=== PATIENT | male | born 1945 | race Caucasian/White ===

== ENCOUNTER 2016-08-14 12:23 | Inpatient (IN) | payer OTHER, MEDICARE ==
[~2016-08-14] VITALS: Ht 165.1 cm; Wt 68.0 kg
[~2016-08-14 12:23] MED LIST: ADVIL200 MG PO; ASPIRIN81 M2 PO; ATORVASTATIN CA80 MG PO; CARVEDILOL3.125 MG PO; LISINOPRIL10 MG PO; LISINOPRIL2.5 MG PO; METOPROLOL TART25 MG PO; NITROSTAT0.4 MG SL; NORVASC2.5 MG PO; VANCOCIN 250 M250 MG PO
[2016-08-14 13:36] LABS: HEMATOCRIT 39.8 % (38.0-50.0); MCH 33.3 PG (29.0-34.0); MCHC 35.7 G/DL (30.0-36.0); MCV 93.2 FL (86-99); MEAN PLAT.VOLUME 10.3 uM^3 (9.0-12.4); PLATELET COUNT 55 K/uL (156-360); RBC DIS.WIDTH-CV 15.5 % (11.8-14.6); RED BLOOD COUNT 4.27 M/uL (4.00-5.50); WHITE BLOOD COUNT 4.1 K/uL (4.1-10.2)
[2016-08-14 13:44] LABS: CHLORIDE 105 mEq/L (99-109); POTASSIUM 3.6 mEq/L (3.7-5.4); SODIUM 143 mEq/L (136-147)
[2016-08-14 13:46] LABS: GLUCOSE 92 mg/dL (70-99)
[2016-08-14 13:47] LABS: ANION GAP 20 MEQ/L (2-14)
[2016-08-14 13:50] LABS: GFR ESTIMATE (CALCULATED) > 59 mL/min/; UREA NITROGEN (BUN) 16 mg/dL (9-23)
[2016-08-14 13:58] LABS: TROP-I INTERPRETATION NEGATIVE; TROPONIN-I 0.01 ng/mL (0.0-0.30)
[2016-08-14 14:09] LABS: SERUM ETHYL ALCOHOL 172 mg/dL
[2016-08-14] MEDS ORDERED: ZOLOFT100 MG PO (14:42)
[2016-08-14] MEDS ORDERED: CENTRUM MEN'S1 EACH PO (14:42)
[2016-08-14 15:52] LABS: TOTAL BILIRUBIN 0.5 mg/dL (0.0-1.0)
[2016-08-14 15:53] LABS: ALKALINE PHOSPHATASE 118 IU/L (3-129)
[2016-08-14 15:55] LABS: DIRECT BILIRUBIN 0.2 mg/dL (0.0-0.3)
[2016-08-14 20:43] VITALS: BP 170/83
[2016-08-14 21:32] LABS: ADD MIUA? YES; BILIRUBIN NEGATIVE; BLOOD SMALL; COLOR YELLOW ((YELLOW)); GLUCOSE (STRIP) 100; KETONES 15; LEUKOCYTES NEGATIVE; NITRITE NEGATIVE; PROTEIN (STRIP) 100; SPECIFIC GRAVITY 1.023 (1.000-1.030)
[2016-08-14 22:03] LABS: BACTERIA NONE SEEN; CASTS PRESENT /LPF; CRYSTALS NONE SEEN; EPITHELIAL CELLS 1+; HYALINE CASTS 0-5 /LPF; MUCUS 2+; RED BLOOD CELLS 0-5 /HPF (0-5); UCUL ADDED? NO; WHITE BLOOD CELLS 0-5 /HPF (0-5)
[2016-08-15 00:21] VITALS: BP 125/69
[2016-08-15 04:18] VITALS: BP 134/68
[2016-08-15 07:21] LABS: ALKALINE PHOSPHATASE 100 IU/L (3-129); ANION GAP 12 MEQ/L (2-14); CHLORIDE 105 MEQ/L (99-109); GFR ESTIMATE (CALCULATED) > 59 mL/min/; GLUCOSE 104 mg/dL (70-99); POTASSIUM 3.1 MEQ/L (3.7-5.4); SAMPLE HEMOLYSIS CHECK 0; SAMPLE ICTERIC CHECK 0; SAMPLE LIPEMIA CHECK 0; SODIUM 142 MEQ/L (136-147); TOTAL BILIRUBIN 0.6 MG/DL (0.0-1.0); UREA NITROGEN (BUN) 13 mg/dL (9-23)
[2016-08-15 07:30] LABS: EOSINOPHIL (%) 0.4 % (0-5); HEMATOCRIT 30.4 % (38.0-50.0); IMMATURE GRANULOCYTE (%) 0.4 % (0.0-0.7); LYMPHOCYTE COUNT 0.8 K/uL (1.0-2.8); MCH 33.5 PG (29.0-34.0); MCHC 35.2 G/DL (30.0-36.0); MCV 95.3 FL (86-99); MONOCYTE COUNT 0.2 K/uL (0-0.8); NEUTROPHIL COUNT 1.6 K/uL (1.8-6.4); RBC DIS.WIDTH-CV 15.9 % (11.8-14.6); RBC DIS.WIDTH-SD 56.2 % (39-53)
[2016-08-15 07:34] LABS: RED BLOOD COUNT 3.19 M/uL (4.00-5.50); WHITE BLOOD COUNT 2.6 K/uL (4.1-10.2)
[2016-08-15 07:48] VITALS: BP 116/58
[2016-08-15 10:15] LABS: MEAN PLAT.VOLUME 11.4 uM^3 (9.0-12.4); PLAT.SUFFICIENCY DECREASED; PLATELET COUNT 38 K/uL (156-360); USER ID CL
[2016-08-15 11:51] VITALS: BP 127/63
[2016-08-15 15:31] VITALS: BP 105/58
[2016-08-15 19:18] VITALS: BP 116/73
[2016-08-16 00:28] VITALS: BP 137/80
[2016-08-16 04:13] VITALS: BP 129/78
[2016-08-16 08:46] VITALS: BP 144/81
[2016-08-16 09:16] LABS: MCH 32.7 PG (29.0-34.0); MCHC 33.9 G/DL (30.0-36.0); MCV 96.6 FL (86-99); RBC DIS.WIDTH-CV 15.8 % (11.8-14.6); RBC DIS.WIDTH-SD 55.8 % (39-53); RED BLOOD COUNT 3.21 M/uL (4.00-5.50); WHITE BLOOD COUNT 2.4 K/uL (4.1-10.2)
[2016-08-16 09:53] LABS: ANION GAP 12 MEQ/L (2-14); CHLORIDE 106 MEQ/L (99-109); GFR ESTIMATE (CALCULATED) > 59 mL/min/; GLUCOSE 84 mg/dL (70-99); MEAN PLAT.VOLUME 12.7 uM^3 (9.0-12.4); PLATELET COUNT 41 K/uL (156-360); SAMPLE HEMOLYSIS CHECK 0; SAMPLE ICTERIC CHECK 0; SAMPLE LIPEMIA CHECK 0; SODIUM 142 MEQ/L (136-147); UREA NITROGEN (BUN) 9 mg/dL (9-23)
[2016-08-16 12:45] VITALS: BP 133/78
[2016-08-16 16:55] VITALS: BP 106/56
[2016-08-16 19:49] VITALS: BP 147/91
[2016-08-17 00:37] VITALS: BP 159/97
[2016-08-17 04:02] VITALS: BP 149/83
[2016-08-17 07:40] VITALS: BP 175/98
[2016-08-17 11:32] VITALS: BP 118/75
[2016-08-17 15:18] VITALS: BP 123/69
[2016-08-17 19:33] VITALS: BP 118/75
[2016-08-18 00:15] VITALS: BP 127/78
[2016-08-18 04:28] VITALS: BP 131/69
[2016-08-18 06:58] LABS: EOSINOPHIL (%) 2.9 % (0-5); EOSINOPHIL COUNT 0.1 K/uL (0-0.3); HEMATOCRIT 33.3 % (38.0-50.0); IMMATURE GRANULOCYTE (%) 0.6 % (0.0-0.7); LYMPHOCYTE COUNT 0.8 K/uL (1.0-2.8); MCH 33.1 PG (29.0-34.0); MCHC 33.9 G/DL (30.0-36.0); MCV 97.7 FL (86-99); MONOCYTE (%) 10.7 % (3-12); MONOCYTE COUNT 0.3 K/uL (0-0.8); NEUTROPHIL (%) 60.2 % (45-76); NEUTROPHIL COUNT 1.9 K/uL (1.8-6.4); RBC DIS.WIDTH-SD 57.1 % (39-53); RED BLOOD COUNT 3.41 M/uL (4.00-5.50); WHITE BLOOD COUNT 3.1 K/uL (4.1-10.2)
[2016-08-18 07:26] LABS: ANION GAP 8 MEQ/L (2-14); CHLORIDE 109 MEQ/L (99-109); GFR ESTIMATE (CALCULATED) > 59 mL/min/; GLUCOSE 91 mg/dL (70-99); MEAN PLAT.VOLUME 11.5 uM^3 (9.0-12.4); POTASSIUM 3.5 MEQ/L (3.7-5.4); SAMPLE HEMOLYSIS CHECK 0; SAMPLE ICTERIC CHECK 0; SAMPLE LIPEMIA CHECK 0; SODIUM 142 MEQ/L (136-147); UREA NITROGEN (BUN) 7 mg/dL (9-23)
[2016-08-18 07:28] LABS: PLATELET COUNT 69 K/uL (156-360)
[2016-08-18 08:03] VITALS: BP 167/88
[2016-08-18 11:05] VITALS: BP 148/79
[2016-08-18 15:09] VITALS: BP 101/51
[2016-08-18 20:00] VITALS: BP 106/64
[2016-08-19] VITALS: BP 145/64
[2016-08-19 04:00] VITALS: BP 156/75
[2016-08-19 07:22] VITALS: BP 136/78
[2016-08-19 07:35] LABS: ALKALINE PHOSPHATASE 103 IU/L (3-129); ANION GAP 9 MEQ/L (2-14); CHLORIDE 108 MEQ/L (99-109); GFR ESTIMATE (CALCULATED) > 59 mL/min/; GLUCOSE 103 mg/dL (70-99); SAMPLE HEMOLYSIS CHECK 0; SAMPLE ICTERIC CHECK 0; SAMPLE LIPEMIA CHECK 0; SODIUM 140 MEQ/L (136-147); UREA NITROGEN (BUN) 15 mg/dL (9-23)
[2016-08-19 07:36] LABS: POTASSIUM 4.4 MEQ/L (3.7-5.4); TOTAL BILIRUBIN 0.4 MG/DL (0.0-1.0)
[2016-08-19 10:59] VITALS: BP 129/73
[2016-08-19] MEDS ORDERED: FOLIC ACID1 MG PO (11:15)
[2016-08-19] MEDS ORDERED: Thiamine,Vitamin B1 PO (11:15)
[2016-08-19] MEDS ORDERED: CHLORDIAZEPOXID25 MG PO (11:15)
[2016-08-19] MEDS ORDERED: NICOTINE PATCH1 EAC1 TD (11:15)
== END 2016-08-19 15:00 | DRG 897 ==
LOC: EME 12:23 → 5SOUTH 15:17 → EDOF 15:17 → 5SOUTH 20:26
PROVIDERS: Emergency Medicine; Hospitalist; Physician Assistant
DX: F10.239 Alcohol dependence with withdrawal, unspecified (principal); F32.9 Major depressive disorder, single episode, unspecified; E87.6 Hypokalemia; E87.2 Acidosis; R47.82 Fluency disorder in conditions classified elsewhere; D69.6 Thrombocytopenia, unspecified; E78.5 Hyperlipidemia, unspecified; I10 Essential (primary) hypertension; F17.200 Nicotine dependence, unspecified, uncomplicated; I25.2 Old myocardial infarction; R74.0 Nonspecific elevation of levels of transaminase and lactic acid dehydrogenase [LDH]; I25.10 Atherosclerotic heart disease of native coronary artery without angina pectoris; Z95.1 Presence of aortocoronary bypass graft; Z79.82 Long term (current) use of aspirin; H11.32 Conjunctival hemorrhage, left eye; R53.1 Weakness; W06.XXXA Fall from bed, initial encounter; Y99.9 Unspecified external cause status
CPT/HCPCS: 70450; 70551; 71020; 74150; 80048; 80053; 80076; 81003; 83605; 83735; 84484; 85025; 85027; 87040; 93005; 94799; 97530 GP; 99281; 99285; G0480; J2405; J2543; J3360; J3370; J3411; J3475; J7030; J7042; J7050

== ENCOUNTER 2017-09-09 07:56 | Inpatient (IN) | payer OTHER, MEDICARE ==
[~2017-09-09] VITALS: Ht 167.6 cm; Wt 69.9 kg
[~2017-09-09 07:56] MED LIST changes: +CENTRUM MEN'S1 EACH PO; +CHLORDIAZEPOXID25 MG PO; +FOLIC ACID1 MG PO; +NICOTINE PATCH1 EAC1 TD; +Thiamine,Vitamin B1 PO; +ZOLOFT100 MG PO
[2017-09-09 08:38] LABS: BASOPHIL (%) 0.9 % (0-1); BASOPHIL COUNT 0.1 K/uL (0-0.1); EOSINOPHIL (%) 1.4 % (0-5); EOSINOPHIL COUNT 0.1 K/uL (0-0.3); HEMATOCRIT 44.2 % (38.0-50.0); HEMOGLOBIN 15.2 G/DL (12.5-16.6); IMMATURE GRANULOCYTE (%) 0.4 % (0.0-0.7); LYMPHOCYTE (%) 15.4 % (15-42); LYMPHOCYTE COUNT 0.9 K/uL (1.0-2.8); MCH 33.6 PG (29.0-34.0); MCHC 34.4 G/DL (30.0-36.0); MCV 97.6 FL (86-99); MONOCYTE (%) 10.3 % (3-12); MONOCYTE COUNT 0.6 K/uL (0-0.8); NEUTROPHIL (%) 71.6 % (45-76); PLATELET COUNT 142 K/uL (156-360); RBC DIS.WIDTH-CV 14.8 % (11.8-14.6); RBC DIS.WIDTH-SD 53.3 % (39-53); RED BLOOD COUNT 4.53 M/uL (4.00-5.50); WHITE BLOOD COUNT 5.6 K/uL (4.1-10.2)
[2017-09-09 08:49] LABS: CHLORIDE 105 mEq/L (99-109); POTASSIUM 4.1 mEq/L (3.7-5.4); SODIUM 145 mEq/L (136-147)
[2017-09-09 08:51] LABS: GLUCOSE 92 mg/dL (70-99)
[2017-09-09 08:54] LABS: SERUM ETHYL ALCOHOL 42 mg/dL
[2017-09-09 08:55] LABS: CREATININE 0.9 mg/dL (0.6-1.3); GFR ESTIMATE (CALCULATED) > 59 mL/min/ (58.99-99999)
[2017-09-09 08:56] LABS: UREA NITROGEN (BUN) 9 mg/dL (9-23)
[2017-09-09 11:31] LABS: APPEARANCE CLEAR ((CLEAR)); BILIRUBIN NEGATIVE; BLOOD NEGATIVE; COLOR YELLOW ((YELLOW)); GLUCOSE (STRIP) NEGATIVE; KETONES 5; LEUKOCYTES NEGATIVE; NITRITE NEGATIVE; PROTEIN (STRIP) 100; SPECIFIC GRAVITY 1.015 (1.000-1.030); UROBILINOGEN 0.2 MG/DL (0.2-1.0)
[2017-09-09 11:35] LABS: BACTERIA NONE SEEN /HPF; EPITHELIAL CELLS NONE SEEN /HPF; HYALINE CASTS 0-5 /LPF; MUCUS TRACE /LPF; RED BLOOD CELLS 0-5 /HPF (0-5); WHITE BLOOD CELLS 0-5 /HPF (0-5)
[2017-09-09 11:38] LABS: AMPHETAMINE NEGATIVE (500 ng/mL); BARBITURATES NEGATIVE (200 ng/mL); BENZODIAZEPINES NEGATIVE (150 ng/mL); BUPRENORPHINE NEGATIVE (10 ng/mL); COCAINE NEGATIVE (150 ng/mL); METHADONE NEGATIVE (200 ng/mL); METHAMPHETAMINE NEGATIVE (500 ng/mL); OPIATES (MORPHINE) NEGATIVE (100 ng/mL); OXYCODONE NEGATIVE (100 ng/mL); PHENCYCLIDINE NEGATIVE (25 ng/mL); PROPOXYPHENE NEGATIVE (300 ng/mL); THC CANNABINOIDS NEGATIVE (50 ng/mL); TRICYCLIC ANTIDEPRESSANTS NEGATIVE (300 ng/mL)
[2017-09-09] MEDS ORDERED: ATORVASTATIN CA40 MG PO (12:41)
[2017-09-09] MEDS ORDERED: SERTRALINE HCL100 MG PO (12:41)
[2017-09-09] MEDS ORDERED: METOPROLOL TART50 MG PO (12:45)
[2017-09-09] MEDS ORDERED: CALCIUM 500 MG1 EACH PO (12:45)
[2017-09-09 14:07] LABS: MAGNESIUM 2.1 mg/dL (1.3-2.7)
[2017-09-09 17:12] VITALS: BP 178/86
[2017-09-09 19:20] VITALS: BP 158/91
[2017-09-09 23:40] VITALS: BP 145/70
[2017-09-10 04:10] VITALS: BP 152/77
[2017-09-10 07:10] LABS: CHLORIDE 104 MEQ/L (99-109); CREATININE 0.8 MG/DL (0.6-1.3); GFR ESTIMATE (CALCULATED) > 59 mL/min/ (58.99-99999); POTASSIUM 3.9 MEQ/L (3.7-5.4); SODIUM 140 MEQ/L (136-147); UREA NITROGEN (BUN) 10 mg/dL (9-23)
[2017-09-10 07:11] LABS: GLUCOSE 150 mg/dL (70-99)
[2017-09-10 08:02] VITALS: BP 133/69
[2017-09-10 17:12] VITALS: BP 149/79
[2017-09-10 19:36] VITALS: BP 144/74
[2017-09-11 00:14] VITALS: BP 118/67
[2017-09-11 00:20] VITALS: BP 145/86
[2017-09-11 04:04] VITALS: BP 118/74
[2017-09-11 07:01] LABS: BASOPHIL (%) 0 % (0-1); CHLORIDE 105 MEQ/L (99-109); EOSINOPHIL (%) 0 % (0-5); GFR ESTIMATE (CALCULATED) > 59 mL/min/ (58.99-99999); GLUCOSE 134 mg/dL (70-99); HEMATOCRIT 41.5 % (38.0-50.0); HEMOGLOBIN 13.8 G/DL (12.5-16.6); IMMATURE GRANULOCYTE (%) 0.4 % (0.0-0.7); LYMPHOCYTE (%) 8.5 % (15-42); LYMPHOCYTE COUNT 0.4 K/uL (1.0-2.8); MCH 32.8 PG (29.0-34.0); MCHC 33.3 G/DL (30.0-36.0); MCV 98.6 FL (86-99); MONOCYTE (%) 4.2 % (3-12); MONOCYTE COUNT 0.2 K/uL (0-0.8); NEUTROPHIL (%) 86.9 % (45-76); NEUTROPHIL COUNT 4.1 K/uL (1.8-6.4); POTASSIUM 3.5 MEQ/L (3.7-5.4); RBC DIS.WIDTH-CV 14.6 % (11.8-14.6); RBC DIS.WIDTH-SD 53.6 % (39-53); RED BLOOD COUNT 4.21 M/uL (4.00-5.50); SODIUM 141 MEQ/L (136-147); UREA NITROGEN (BUN) 19 mg/dL (9-23); WHITE BLOOD COUNT 4.7 K/uL (4.1-10.2)
[2017-09-11 07:21] VITALS: BP 155/76
[2017-09-11 07:31] LABS: PLAT.SUFFICIENCY DECREASED
[2017-09-11 07:47] LABS: PLATELET COUNT 97 K/uL (156-360)
[2017-09-11 15:20] VITALS: BP 140/77
[2017-09-12 00:07] VITALS: BP 136/90
[2017-09-12 06:25] LABS: BASOPHIL (%) 0.2 % (0-1); EOSINOPHIL (%) 0 % (0-5); HEMATOCRIT 43.8 % (38.0-50.0); HEMOGLOBIN 14.7 G/DL (12.5-16.6); IMMATURE GRANULOCYTE (%) 0.9 % (0.0-0.7); LYMPHOCYTE (%) 7.9 % (15-42); LYMPHOCYTE COUNT 0.5 K/uL (1.0-2.8); MCH 33.8 PG (29.0-34.0); MCHC 33.6 G/DL (30.0-36.0); MCV 100.7 FL (86-99); MONOCYTE COUNT 0.3 K/uL (0-0.8); PLATELET COUNT 100 K/uL (156-360); RBC DIS.WIDTH-CV 14.6 % (11.8-14.6); RBC DIS.WIDTH-SD 54.5 % (39-53); RED BLOOD COUNT 4.35 M/uL (4.00-5.50); WHITE BLOOD COUNT 5.8 K/uL (4.1-10.2)
[2017-09-12 07:02] LABS: CHLORIDE 107 MEQ/L (99-109); GFR ESTIMATE (CALCULATED) > 59 mL/min/ (58.99-99999); GLUCOSE 124 mg/dL (70-99); POTASSIUM 4.2 MEQ/L (3.7-5.4); SODIUM 140 MEQ/L (136-147); UREA NITROGEN (BUN) 24 mg/dL (9-23)
[2017-09-12 07:35] VITALS: BP 171/86
[2017-09-12] MEDS ORDERED: FOLIC ACID1 MG PO (10:52)
[2017-09-12] MEDS ORDERED: ADVAIR HFA120 INHALA IH (10:52)
[2017-09-12] MEDS ORDERED: Thiamine,Vitamin B1 PO (10:52)
[2017-09-12] MEDS ORDERED: DOXYCYCLINE HY100 MG PO (10:52)
[2017-09-12] MEDS ORDERED: PREDNISONE10 MG PO (10:52)
[2017-09-12] MEDS ORDERED: VENTOLIN HFA18 GM IH (10:52)
[2017-09-12] MEDS ORDERED: ADULT FOLDING1 EACH MC (10:56)
== END 2017-09-12 13:04 | disposition home or self-care (01) | DRG 896 ==
LOC: EME 07:56 → 5SOUTH 12:07 → EDOF 12:07 → ENRESERV 12:24 → 5SOUTH 17:01
PROVIDERS: Emergency Medicine; Internal Medicine; Student in an Organized Health Care Education/Training Program
DX: F10.230 Alcohol dependence with withdrawal, uncomplicated (principal); J18.9 Pneumonia, unspecified organism; J44.0 Chronic obstructive pulmonary disease with (acute) lower respiratory infection; S81.812A Laceration without foreign body, left lower leg, initial encounter; W18.39XA Other fall on same level, initial encounter; Y92.230 Patient room in hospital as the place of occurrence of the external cause; I25.10 Atherosclerotic heart disease of native coronary artery without angina pectoris; E78.5 Hyperlipidemia, unspecified; F17.200 Nicotine dependence, unspecified, uncomplicated; E87.6 Hypokalemia; F32.9 Major depressive disorder, single episode, unspecified; I10 Essential (primary) hypertension; I25.2 Old myocardial infarction; J44.1 Chronic obstructive pulmonary disease with (acute) exacerbation; R09.02 Hypoxemia; Z95.1 Presence of aortocoronary bypass graft
CPT/HCPCS: 71045; 80048; 81003; 83735; 85025; 87040; 87070; 87205; 90686; 94640; 94640 76; 99202; 99281; 99285; G0480; J0696; J1650; J2060; J2930; J3411; J3475